=== PATIENT | female | born 1950 | race Caucasian/White ===

== ENCOUNTER 2021-01-29 13:03 | Emergency (ER) | payer MEDICARE, OTHER, SELFPAY ==
[2021-01-29] VITALS (7 sets, daily range): BP systolic 114–126; BP diastolic 61–78; PULSE 76–93; RESP 16–20; TEMP 36.9; O2SAT 84–99; BMI 24.9
--- NOTE | 2021-01-29 13:30 | EKG12_ITS ---
Test Reason : Blood Pressure : / mmHG Vent. Rate : 073 BPM Atrial Rate : 073 BPM P-R Int : 130 ms QRS Dur : 092 ms QT Int : 426 ms P-R-T Axes : 024 009 063 degrees QTc Int : 469 ms Normal sinus rhythm Nonspecific ST and T wave abnormality Abnormal ECG Confirmed by JULIO CESAR HYDE, MARGIE ([id number]), assistant film editor GALA PORTER ([id number]) on 02/01/2021 1:11:01 PM Referred By: Confirmed By:MARGIE HARRELL MD
--- NOTE | 2021-01-29 13:35 | RAD_ITS ---
STUDY: X-RAY CHEST REASON FOR EXAM: Female, 70 years old. Covid. Positive. Shortness of breath and bodyaches. Bilateral patchy pulmonary infiltrates worse on the right side TECHNIQUE: Single AP portable view of the chest. COMPARISON: None. FINDINGS: The lungs are clear and expanded. There is no demonstrated pleural abnormality. Normal size heart. Normal mediastinum and matilde. Normal visualized pulmonary arteries. Normal visualized aortic arch and descending thoracic aorta. Normal visualized thoracic spine. Normal visualized ribs, clavicles, and shoulders. There is no demonstrated abnormality of the visualized soft tissue structures of the upper abdomen. RAD/Chest 1 View (Portable) IMPRESSION: Patchy infiltrates in both lower lobes worse on the right side. Electronically Signed: Maninder Cardoza MD at 13:54 EDT , Service support ,
--- NOTE | 2021-01-29 13:39 | NURSING ---
NO OLD EKGS
[2021-01-29 13:56] LABS: Absolute Lymphocyte Count 0.73 X10^3/uL (0.83-4.51); Absolute Neutrophil Count 6.8 X10^3/uL (2.0-7.7); Basophil# 0.02 X10^3/uL; Basophil% 0.3 % (0-1); Hematocrit 38.6 % (37-47); Hemoglobin 13.1 g/dL (12.0-15.0); Lymphocyte # 0.73 X10^3/ul (0.83-4.51); Lymphocyte % 9.3 % (19-41); Mean Corp Hgb Conc 33.9 g/dL (32-36); Mean Corpuscular Hgb 29.6 pg (27.0-32.0); Mean Corpuscular Volume 87.3 fL (81-99); Mean Platelet Vol. 10.5 fl (6.2-12.0); Monocyte# 0.14 X10^3/uL; Monocyte% 1.8 % (0-10); NRBC Flagged by Analyzer 0 % (0-5); Neutrophil # 6.84 X10^3/uL (2.7-7.7); Neutrophil % 87.2 % (47-70); Platelet Count 220 K/mm3 (150-450); RBC Distribution Width CV 12.4 % (11.6-14.6); RBC Distribution Width SD 39.7 fl (35.1-43.9); Red Blood Count 4.42 M/mm3 (4.2-5.4); White Blood Count 7.8 K/mm3 (4.4-11.0)
[2021-01-29 14:15] LABS: Anion Gap 8 (5-15); BUN 11 mg/dL (7-18); Chloride 98 mmol/L (98-107); Creatinine, Serum 0.65 mg/dL (0.55-1.02); EST Glomerular Filtration Rate 97 mL/min (>60); Est Glom Filt Rate - Afr Amer 117 mL/min (>60); Estimated Creatinine Clearance 40.63 ml/min; Glucose 156 mg/dL (74-106); Potassium 2.7 mmol/L (3.5-5.1); Sodium Level 137 mmol/L (136-145)
[2021-01-29] MEDS: dexAMETHasone 10 MG/ML Vial IV (15:08)
--- NOTE | 2021-01-29 15:24 | EDS_ITS ---
HPI HPI - URI History of Present Illness Chief Complaint: Shortness of Breath Informant: patient and spouse/S.O. Onset/Context/Timing Onset: Days (Onset of illness January 17) Context: Gradual Onset Timing: Continuous Quality: Upper respiratory/Covid symptoms with diarrhea Location: Respiratory and GI Current Severity: Mild Maximum Severity: Severe Worsened by: Not Worsened By Swallowing, Eating Solids and Drinking Liquids Associated Symptoms Associated Symptoms: Positive for Nasal Congestion, Headache, Sinus Pressure, Myalgias, Nausea, Diarrhea, Shortness of Breath and Nonproductive cough; Negative for Vomiting, Chest Pain, Hemoptysis and Productive Cough Narrative Narrative: Patient is 70-year-old woman with history of hypertension who presents with hypoxia. She states her pulse ox was 82% at home. When she presented pulse ox on room air was 84%. This correlates with her monitor. She has no taste or smell. She has upper respiratory symptoms. She has a cough that is nonproductive. Planes of dyspnea at rest and dyspnea with exertion. She denies history of VTE. She denies leg pain, swelling discoloration. She does report diarrhea. Of note she is on a diuretic. She reports thirst, dry mouth and orthostatic symptoms. She states she is trying to stay hydrated. She was placed on prednisone. She was seen at outside facility and allowed to go home. Apparently she was prescribed prednisone. She did have a positive Covid test. Prior similar symptoms: Yes Recent Illness/Hospitalization: Yes ROS ROS ED Constitutional Constitutional ED: Reports chills, fever(s) and sweats; Denies weight loss Eyes Eyes: Denies blurry vision, change in vision or diplopia ENT ENT ED: Reports rhinorrhea and sore throat; Denies ear pain Cardiovascular Cardiovascular: Reports palpitations; Denies chest pain, orthopnea, paroxysmal nocturnal dyspnea or racing heartbeat Respiratory/Chest Respiratory/Chest: Reports cough, dyspnea and dyspnea on exertion; Denies orthopnea, paroxysmal nocturnal dyspnea or sputum Gastrointestinal Gastrointestinal: Reports abdominal pain, diarrhea and nausea; Denies constipation, melena or vomiting Genitourinary Genitourinary ED: Reports dysuria and urinary frequency; Denies hematuria Musculoskeletal Musculoskeletal: Reports arthralgias and myalgias; Denies back pain or neck pain Integumentary Denies rash Neurologic Neurologic: Reports headache(s) and weakness; Denies paresthesias Hematologic/Lymphatic Hematologic/Lymphatic: Denies easy bleeding or easy bruising Allergic/Immunologic Allergic/Immunologic ED: Denies mouth swelling or urticaria PFSH PFSH Medical History Anxiety GERD (gastroesophageal reflux disease) History of trigger finger Hypertension Home Medications dexamethasone [Decadron] 6 mg PO DAILY #6 tab 01/29/21 [Rx Last Taken Unknown] potassium chloride 20 meq PO BID #10 ea 01/29/21 [Rx Last Taken Unknown] Allergy/AdvReac Type Severity Reaction Status Date / Time morphine Allergy Hives Verified 01/29/21 13:09 Surgical History (Updated 01/29/21 @ 14:37 by Karol Andino) History of History of carpal tunnel repair History of hysterectomy Surgical History no surgical history no surgical history Social History (Updated 01/29/21 @ 15:[address] Flako Lam MD) household members: spouse housing: house Smoking Status: Never smoker alcohol intake: never substance use type: does not use EXAM Physical Exam Const Vital Signs: 01/29/21 13:04 01/29/21 13:30 01/29/21 14:32 Temperature 98.5 F Temperature Source Oral Pulse Rate 93 80 Respiratory Rate 16 20 H 20 H Respiratory Effort Respiratory Depth Respiratory Pattern Blood Pressure 114/65 124/72 H Blood Pressure Mean 81 89 Pulse Ox 84 98 97 Oxygen Delivery Method Room Air Nasal Cannula Nasal Cannula Oxygen Flow Rate (L/min) 2 2 2 Fraction of Inspired Oxygen (FIO2) 94 01/29/21 14:34 01/29/21 16:02 Temperature Temperature Source Pulse Rate 76 Respiratory Rate 16 Respiratory Effort Short of Breath Respiratory Depth Shallow Respiratory Pattern Normal Blood Pressure 126/61 H Blood Pressure Mean 82 Pulse Ox 99 Oxygen Delivery Method Nasal Cannula Room Air Oxygen Flow Rate (L/min) 2 Fraction of Inspired Oxygen (FIO2) Positive well nourished and well developed General Appearance ED: well developed and other Patient appears ill. She is tachypneic. She does not appear toxic. ; Negative for NAD or pallor HEENT Reports dry mucous membranes; Denies moist mucous membranes normocephalic and atraumatic Face and Sinus: Negative for sinus tenderness or facial tenderness External Ear: external ears normal, mastoids normal and no preauricular adenopathy External Auditory Canal: EAC's normal Tympanic Membrane ED: Yes TM's normal bilaterally Tympanic Membrane: TM's normal bilaterally Mouth ED: Yes dry mucous membranes Mouth: dry mucous membranes Throat: posterior oropharynx normal Eyes PERRL and EOMs intact bilaterally General Eye ED: Negative for pale conjunctiva or scleral icterus Neck no lymphadenopathy, supple, no meningeal signs and no JVD Resp No normal respiratory effort and No clear to auscultation bilaterally Auscultation: rales bilateral lower (Lower bilaterally. Rales are greater on the right compared to the left.) Cardio S1 normal heart sound, S2 normal heart sound and no murmurs Rate: regular rate Rhythm: regular rhythm Bruits: Negative for carotid bruit or abdominal aortic bruit GI non-tender, non-distended and no masses Auscultation: normoactive bowel sounds Palpation: soft Back/Spine no CVA tenderness Extremity normal to inspection and full ROM Extremity Narrative: There is no asymmetry, swelling, discoloration, leg vein distention, palpable cords or tenderness along the distribution of the deep venous system. General Extremety ED: Negative for cyanosis or tenderness General Extremity: Negative for cyanosis Neuro oriented x3 and CN's II-XII intact bilaterally Sensorium / Orientation: alert Psych mental status grossly normal Skin General Skin Exam: Negative for jaundice or pallor Lesions: no lesions Rashes: no rashes MDM MDM MDM Narrative Medical decision making narrative: Clinically patient has Covid pneumonia. Single view chest x-ray was reviewed viewed by me and notes bilateral interstitial infiltrate right greater than left. This is consistent with Covid. Blood work was placed per nurse protocol. White count is normal. Differential reveals slight shift/demargination. Electrolyte panel is remarkable for potas sium 2.7. 40 mEq of potassium chloride p.o. was ordered every hour for a total of 3 doses. She did receive 10 mg of Decadron IV push. Ambulatory pulse ox was ordered. Will determine if safe and appropriate for outpatient management with oxygen versus admission. Lab Data Attestation: I reviewed the patient's lab results. Labs: Laboratory Results - last 24 hr 01/29/21 01/29/21 01/29/21 13:50 13:50 14:52 WBC 7.8 RBC 4.42 Hgb 13.1 Hct 38.6 MCV 87.3 MCH 29.6 MCHC 33.9 RDW Std Deviation 39.7 RDW Coeff of Ulises 12.4 Plt Count 220 MPV 10.5 Immature Gran % (Auto) 1.400 H Neut % (Auto) 87.2 H Lymph % (Auto) 9.3 L Clark % (Auto) 1.8 Eos % (Auto) 0.0 Baso % (Auto) 0.3 Absolute Neuts (auto) 6.8 Absolute Lymphs (auto) 0.73 L Nucleated RBC % 0 Sodium 137 Potassium 2.7 L* Chloride 98 Carbon Dioxide 31.0 Anion Gap 8 BUN 11 Creatinine 0.65 Estim Creat Clear Calc 40.63 Est GFR (MDRD) Af Amer 117 Est GFR (MDRD) Non-Af 97 BUN/Creatinine Ratio 17.0 Glucose 156 H Calcium 9.0 Urine Color Yellow Urine Clarity Clear Urine pH 7.0 Ur Specific [place] 1.010 Urine Protein 15 H Urine Glucose (UA) Normal Urine Ketones Negative Urine Occult Blood Negative Urine Nitrite Negative Urine Bilirubin Negative Urine Urobilinogen Normal Ur Leukocyte Esterase Negative Urine RBC 0 SEEN Urine WBC 0 SEEN Ur Squamous Epith Cells 0 SEEN Urine Bacteria 0 SEEN Urine Mucus 0 SEEN Radiography Diagnostic Testing: Radiology Impression Chest X-Ray 01/29/21 13:35 IMPRESSION: Patchy infiltrates in both lower lobes worse on the right side. Electronically Signed: Maninder Cardoza MD at 13:54 EDT , Service support , Treatment and Re-Evaluation Comments:: Patient desaturated with ambulation 87%. She will be discharged on home oxygen and prescription for Decadron. She will be discharged after she receives her 3 doses of potassium. She will need to follow-up with her doctor for repeat potassium level. We will also prescribe short course of potassium since she is having diarrhea and the cause of her hypokalemia. Discharge Plan Triage Chief Complaint: Shortness of Breath ED Provider: Flako Lam Dx/Rx/DC Orders Clinical Impression: Pneumonia due to 2019-nCoV, Diarrhea, Acute hypokalemia, Hypoxia Instructions: Coronavirus Disease 2019 (COVID-19): Caring for Yourself or Others, ED Hypokalemia Prescriptions: New dexamethasone [Decadron] 6 mg tablet 6 mg PO DAILY Qty: 6 RF: 0 potassium chloride 20 mEq packet 20 meq PO BID Qty: 10 RF: 0 Referrals: SANDI OSULLIVAN [Other] - 3-5 Days (Hypokalemia due to diarrhea and thiazide diuretic will need repeat level in 5 days, February 03) Activity Restrictions/Additional Instructions: 1. If your oxygen level drops below 90% with activity on oxygen return to the emergency department 2. Take Decadron until gone 3. Take Imodium for your diarrhea 4. You will need to follow-up with your doctor in 5 days for repeat potassium level Disposition Disposition: Home, Self Care
[2021-01-29 15:25] LABS: Bacteria 0 SEEN /hpf (None Seen); Mucous, Urine 0 SEEN /hpf (<or=2+); Red Blood Cells-Urine 0 SEEN /hpf (0-5); Squamous Epithelial Cells - UA 0 SEEN /hpf (5-10); White Blood Cells 0 SEEN /hpf (0-5)
[2021-01-29 15:26] LABS: Color, Urine Yellow (Yellow); Glucose, Dipstick Normal (Normal); Ketone-Dipstick Negative (Negative); Leukocyte Esterase-Dipstick Negative /ul (Negative); Nitrite-Dipstick Negative (Negative); Occult Blood-Urine Negative /ul (Negative); Protein-Dipstick 15 mg/dl (Negative); Urine Bilirubin Dipstick Negative (Negative); Urine Clarity Clear (Clear); Urine Urobilinogen Normal (Normal)
[2021-01-29] MEDS: Potassium Chloride Oral Soln 20 MEQ/15 ML UDC 40 MEQ PO ×3 (16:01→17:47)
--- NOTE | 2021-01-29 16:54 | CM.ED ---
SOCIAL WORK Referral Source: Dr. Lam Reason for Consult: COVID-Positive requiring home O2 Patient positive for COVID-19. Patient lives home with and is a non-smoker. Patient requires 2L O2 for home going. Patient and in agreement for home O2 to be set up through [employer]. [employer], positive COVID-19 test result, and facesheet faxed and called to [employer]. RT to review home O2 with patient and . CM notified for follow up. [employer] added to chart. Plan: Home with home O2 Kathrin Sutherland, REFINING STILL OPERATOR, PRES[employer]ING [employer]
[2021-01-29] MEDS: Ondansetron ODT 4 MG Tablet PO (17:47)
--- NOTE | 2021-02-01 10:01 | CASEMGMT ---
CHRISTINA VILLANUEVA ED COVID Home O2 Follow-up: This RN CM contacted pt via phone regarding home O2 follow-up. Pt states he is overall feeling better and states her breathing also is feeling better with the O2. Pt states she is wearing the O2 at 2l/min and reports her PO to be in the high 90's. Pt states her diarrhea is lessening with the immodium and that she is able to eat and drink. Pt is taking the KCL and decadron as prescribed. Pt states her PCP will likely be calling her today to set-up follow-up appointment and labs. Pt states if she does not hear back from her PCP's office she or her will contact them. Pt states she stopped taking her lisinopril and nexium due to concerns these may interfere with her recovery. Noted pt's BP was wnl during her ED stay, encouraged pt to monitor her BP at home, and discuss med changes with her PCP when she speaks with them today. Pt states she is staying isolated although she states she feels she got COVID from her so she has not remained isolated from him. Pt denies any further questions or concerns at this time. Jodee Villalta RN CM
--- NOTE | 2021-02-03 16:51 | CASEMGMT ---
RN KAY ED COVID Home O2 Follow-up: This RN KAY attempted to contact pt via phone for continued follow-up. Identifying voicemail received and message left requesting a return call if pt has any questions or concerns. Jodee Villalta RN CM
--- NOTE | 2021-02-05 11:36 | CASEMGMT ---
RN KAY ED COVID Home O2 Follow-up: This RN KAY attempted to contact pt for home O2 follow-up. Identifying voicemail received and message left requesting a return call if pt has any questions or concerns. Jodee Villalta RN CM
--- NOTE | 2021-02-05 11:47 | CASEMGMT ---
CHRISTINA VILLANUEVA ED COVID Home O2 Follow-up: Pt returned this CHRISTINA VILLANUEVA's call and left a voicemail message stating she is doing well and does not have any questions or concerns. Pt thankful to all [facility] staff for being integral to her recovery. Jodee Villalta RN CM
== END 2021-01-29 17:50 | disposition home or self-care (01) ==
PROVIDERS: Emergency Medicine; Emergency Provider Emergency Medicine
DX: U07.1 COVID-19 (principal); J12.82 Pneumonia due to coronavirus disease 2019; R09.02 Hypoxemia; E87.6 Hypokalemia; I10 Essential (primary) hypertension
CPT/HCPCS: 71045; 80048; 81001; 85025; 93005; 94760; 96361; 96374; 99284; J7030; A4216